=== PATIENT | male | born 1980 | race Two or more races ===

== ENCOUNTER 2025-03-12 12:19 | Emergency (ER) | payer MEDICAID, SELFPAY ==
[2025-03-12 12:31] VITALS: BP 168/96; BP 169/100; PULSE 80; RESP 18; TEMP 36.6; O2SAT 97; BMI 31.3
--- NOTE | 2025-03-12 13:08 | XR_ITS ---
Examination: CT abdomen and pelvis without contrast. Coronal 3-D reconstructions. Sagittal 2-D reconstructions. Date and time of exam: March 12, 2025, 1321 hours INDICATIONS: Flank pain abdominal pain dysuria beginning 1 week ago CTDI: vol (mGy): 8.39 DLP: (mGycm): 501 Technique: Axial images of the abdomen have been obtained, 3 mm slice thickness Intravenous contrast material has not been administered. Low dose protocols were performed. One or more of the following dose reduction techniques were used; automated exposure control, adjustment of the mA and/or KV according to patient size, use of iterative reconstruction technique. Findings: Fatty infiltration throughout the liver no focal liver or splenic lesions Contracted gallbladder No pancreatic or adrenal mass 6 mm right renal calculus, no hydronephrosis or ureteral calculi Aorta normal size Normal appendix No bladder mass or bladder calculi, mild thickening urinary bladder wall No prostatomegaly Ununited epiphysis L4 IMPRESSION: 8 mm nonobstructing right renal calculus, no hydronephrosis or ureteral calculi Normal appendix Cystitis
--- NOTE | 2025-03-12 13:08 | PD.EDRME ---
Rapid Medical Screening Exam RME Arrival date/time: 03/12/25 12:19 44-year-old male presents to the emergency department today complaint of abdominal pain, flank pain, dysuria Chief Complaint: General Adult/Misc Complain Time Seen by Provider: 03/12/25 15:42 Vital signs: Vital Signs Temperature 97.9 F 03/12/25 12:31 Pulse Rate 80 03/12/25 12:31 Respiratory Rate 18 03/12/25 12:31 Blood Pressure 169/100 H 03/12/25 12:31 Pulse Oximetry (%) 97 03/12/25 12:31 Oxygen Delivery Method Room Air 03/12/25 12:31
[2025-03-12 13:17] LABS: Collection Type, Urine Clean Catch; Squamous Epithelial Cell,Urine 0 /hpf (0-5); WBC,Urine 0 /hpf (0-5)
[2025-03-12 13:31] LABS: Amorphous Crystals,Urine Present (Absent); Bacteria,Urine 1+; Bilirubin,Urine Negative (Negative); Blood,Urine Negative (Negative); Clarity,Urine Hazy (Clear/Hazy); Color,Urine Yellow (Lt Yel-Yel); Culture Indicated,Urine Yes; Glucose, Urine Negative (Negative); Ketones,Urine Negative (Negative); Leukocyte Esterase,Urine Negative (Negative); Nitrite,Urine Negative (Negative); PH,Urine 7.5 (5.0-7.0); Protein,Urine Negative (Neg - Trace); RBC,Urine 9 /hpf (0-3); Specific Gravity,Urine 1.017 (1.001-1.035); Urobilinogen,Urine 2.0 mg/dL (0.0-1.0)
[2025-03-12 13:56] LABS: Basophils # (Auto) 0.1 Thou/mm3 (0.0-0.2); Basophils % (Auto) 1 % (0-2.5); Eosinophils # (Auto) 0.3 Thou/mm3 (0.0-0.5); Eosinophils % (Auto) 3 % (0-10); Hematocrit 45.8 % (41.0-53.0); Hemoglobin 15.6 g/dL (13.5-16.0); Immature Granulocytes Auto 0.02 Thou/mm3 (0.00-0.00); Lymphocytes # (Auto) 1.7 Thou/mm3 (1.0-4.8); Lymphocytes % (Auto) 22 % (10-50); Mean Corpuscular HGB Conc 34.1 g/dl (31.0-37.0); Mean Corpuscular Hemoglobin 29.5 pg (25.0-35.0); Mean Corpuscular Volume 87 fL (80-100); Monocytes # (Auto) 0.9 Thou/mm3 (0.0-0.8); Monocytes % (Auto) 12 % (0-12); Neutrophils # (Auto) 4.6 Thou/mm3 (1.8-7.7); Neutrophils % (Auto) 61 % (37-80); Nucleated Red Blood Cell # 0.00 Thou/mm3 (0.00-0.00); Nucleated Red Blood Cell % 0 /100 WBC (0); Platelet Count 177 Thou/mm3 (140-440); RDW Standard Deviation 40.4 fL (35.1-43.9); Red Blood Count 5.28 Miln/mm3 (4.50-5.90); White Blood Count 7.6 Thou/mm3 (3.8-10.6)
[2025-03-12 14:15] LABS: Alanine Aminotransferase 290 U/L (10-49); Albumin, Serum 4.2 gm/dL (3.5-5.0); Albumin/Globulin Ratio 1.4 (1.2-2.2); Alkaline Phosphatase 107 U/L (46-116); Anion Gap 9 (7-16); Aspartate Amino Transferase 424 U/L (0-34); BUN/Creatinine Ratio 10 Ratio (12-20); Bilirubin,Total 1.0 mg/dL (0.3-1.2); Blood Urea Nitrogen 6 mg/dL (9-23); Calcium 9.2 mg/dL (8.3-10.6); Calcium (Corrected) 9.2 mg/dL (8.5-10.1); Carbon Dioxide 30.8 mMol/L (20.0-31.0); Chloride 101 mMol/L (98-107); Creatinine (Component) 0.6 mg/dL (0.6-1.3); Estimated Creatinine Clearance 143.4 mL/min (>60); Globulin 2.9 gm/dL (2.3-3.5); Glucose 103 mg/dL (74-106); Lipase 43 U/L (12-53); Osmolality,Calculated 278 (275-295); Potassium 3.9 mMol/L (3.4-5.1); Sodium 141 mMol/L (136-145); Total Protein 7.1 gm/dL (5.7-8.2); eGFR > 60 See Note
--- NOTE | 2025-03-12 16:11 | XR_ITS ---
EXAMINATION: Testicular sonography complete TECHNIQUE: Grayscale sonographic images testes, assessment arterial inflow venous outflow with Doppler spectral analysis color flow analysis Date and time: March 12, 2025, 1628 hours INDICATIONS: Bilateral testicular pain beginning 2 weeks ago FINDINGS: Right testis 3.6 cm epididymis 1.2 cm 3 mm right epididymal cyst. Arterial flow the testicle. No testicular mass. Mild hydrocele Left testis 3.9 cm epididymis 13 mm Arterial flow to the testicle. No testicular mass Mild hydrocele IMPRESSION: No testicular torsion or testicular mass Small benign right epididymal cyst
--- NOTE | 2025-03-12 16:13 | EDNOTE_ITS ---
ED General RME/HPI General Chief complaint: General Adult/Misc Complain Stated complaint: WANTS CHECK UP, PAINFUL URINATION Time Seen by Provider: 03/12/25 15:42 Arrival date/time: 03/12/25 12:19 RME / HPI RME / HPI narrative: 03/12/25 12:19 44-year-old male who does drink a few beers daily, heterosexual male who had unprotected sex 1 month ago with a random person, presents to the emergency department today complaint of R flank pain x 2 months, new onset scrotal burning and burning with urination x 1 day. Denies fever, N/V/D, CP, SOB. Related Data Previous Rx's ?Medication ?Instructions ?Recorded doxycycline monohydrate 100 mg 100 mg PO BID #14 caps 03/12/25 capsule Allergies Allergy/AdvReac Type Severity Reaction Status Date / Time No Known Allergies Allergy Verified 03/12/25 12:23 ED Exam Narrative Physical exam: Constitutional: Patient alert and oriented. Well appearing. No acute distress. Not toxic appearing. Head: Normocephalic, atraumatic. Eyes: Periorbital regions bilaterally normal to inspection. Conjunctiva clear bilaterally. Sclera anicteric bilaterally. Pupils equal, round, reactive to light bilaterally. Extraocular movements intact bilaterally. Mouth/Throat: Mucous membranes moist. No stridor or muffled voice. No trismus. Handling secretions without difficulty. Airway widely patent. Neck: Supple. Trachea midline. No JVD. No nuchal rigidity. Normal range of motion. Respiratory: Normal effort. No accessory muscle use or respiratory distress. Lungs clear to auscultation bilaterally without rhonchi, wheezes, or crackles. Cardiovascular: RRR. Normal S1/S2. No murmurs or rubs. Radial pulses intact bilaterally. Abdomen: Soft. Non-distended. Non-tender throughout. No pulsatile mass. No guarding or rebound. Negative Rangel?s sign. Negative McBurney?s point tenderness. Negative Rovsing?s. Back: No midline tenderness or step-offs. No CVA tenderness to palpation bilaterally. Positive right paralumbar tenderness to palpation. : Patient is uncircumcised. Positive urethral discharge. Mild tenderness to scrotum bilaterally. Normal testicular reflex bilaterally. No rash or edema to scrotum. Upper Extremities: No gross deformities. Lower Extremities: No gross deformities. No edema or calf tenderness. Neuro: Speech normal. No gross motor or sensory deficits to upper or lower extremities bilaterally. GCS 15. CN II?XII grossly intact. Skin: Warm, dry, normal color. Psych: Normal affect. Cooperative. Normal insight. RN Evangelista chaperoned with me during scrotal exam and he translated for me Course Quality Measures none Orders Category Date Time Status CT abdomen pelvis wo con Stat Exams 03/12/25 13:08 Completed US scrotum Stat Exams 03/12/25 16:11 Completed CBC Stat Lab 03/12/25 13:40 Completed Comprehensive Metabolic Panel Stat Lab 03/12/25 13:40 Completed Lipase Stat Lab 03/12/25 13:40 Completed UA, C/S IF [Urinalysis, C/S if Indicated] Stat Lab 03/12/25 13:10 Completed Urine Culture Stat Lab 03/12/25 13:10 Received Urine Culture Stat Lab 03/12/25 17:20 Ordered Doxycycline [Vibramycin] Med 03/12/25 16:34 Discontinued 100 mg PO X1 ONE Ketorolac Inj [Toradol Inj] Med 03/12/25 16:32 Discontinued 30 mg IM X1 ONE cefTRIAXone [Rocephin] 1,000 mg Med 03/12/25 16:12 Discontinued Lidocaine 1% 20 ml [Xylocaine 1% 20 ML] 2.1 ml IM X1 Vital Signs Vital signs: Vital Signs Temperature 97.9 F 03/12/25 12:31 Pulse Rate 80 03/12/25 12:31 Respiratory Rate 18 03/12/25 12:31 Blood Pressure 169/100 H 03/12/25 12:31 Pulse Oximetry (%) 97 03/12/25 12:31 Oxygen Delivery Method Room Air 03/12/25 12:31 Discharge Plan Plan Patient Disposition: HOME (Self Care) Patient condition on transfer: Stable Prescriptions/Referrals Prescriptions/Med Rec: New doxycycline monohydrate 100 mg capsule 100 mg PO BID Qty: 14 0RF Referrals: No Primary/Family,Physician [Primary Care Provider] - In 1 week Problem List Clinical Impression: Urethritis, Pain in scrotum, Transaminitis Patient/Caregiver Discharge Instructions Education Materials: The Impact of Alcoholism, ED Urethritis Infec Vs Inflam ..., ED Testicular Pain, Unclear Cause Additional Instructions: Follow up with your primary medical doctor within 24 hours. Return to the Emergency Room immediately for any new, worsening, continuing symptoms or any c oncerns at all. Return to the Emergency Room within 24 hours if you are unable to follow up with your primary medical doctor within 24 hours. Do not have sex until cleared by your doctor. Print Language: [place] Stand Alone Forms: [employer] Award Info., Patient Portal Info Letter PA/PAINTER TUMBLING BARREL Supervising Physician PA/PAINTER TUMBLING BARREL Supervising Physician: Dr. Pereira MDM Narrative [facility] hospital course (for use when minimal MDM required): MDM 44-year-old male presents to the ER complaining of right flank pain x 2 months with new onset burning with urination, scrotal pain today. Patient does drink a few beers daily, he did drink today. CBC unremarkable CMP notable for AST 424 and ALT 290 consistent with alcoholic hepatitis however alk phos, total bilirubin and lipase all within normal limits and doubt acute hepatobiliary obstruction, I advised patient necessity to stop drinking as well as follow-up with PMD for further evaluation of his transaminitis Urine is notable for 9 RBCs, amorphous crystals as well as bacteria in his urine however leuks are negative as well as nitrites, pending urine culture CT scan notable for 8mm nonobstructing renal calculus on the right as well as cystitis There is fatty infiltration of his liver on the CT scan as well with a contracted gallbladder, appendix is normal On exam concern for urethritis will treat patient empirically with ceftriaxone and doxycycline also advised patient to abstain from intercourse until test of cure Patient's flank pain may be multifactorial in nature cannot exclude musculoskeletal strain versus sprain along with a potentially recently passed stone Plan for pain management as needed, antibiotics as noted, remain with alcohol abstinence, STI education, ED dispo pending ED course including ultrasound however will likely DC to follow-up with PMD in 1 to 2 days with strict ER return precautions advised Imaging Imaging Interpretation(s): Further imaging including ultrasound notes bilateral mild hydroceles and a small right epididymal head cyst however no torsion or epididymitis Medication Administration(s) Medication Administration History Discontinued Medications Ceftriaxone Sodium 1,000 mg/ (Lidocaine HCl 2.1 ml) 0 mg IM X1 ONE Stop: 03/12/25 16:13 Last Admin: 03/12/25 17:15 Dose: 1,000 mg Documented By: EF Doxycycline Hyclate (Doxycycline 100 Mg Tablet) 100 mg PO X1 ONE Stop: 03/12/25 16:35 Last Admin: 03/12/25 17:15 Dose: 100 mg Documented By: EF Ketorolac Tromethamine (Ketorolac Inj 60 Mg/2 Ml Vial) 30 mg IM X1 ONE Stop: 03/12/25 16:33 Last Admin: 03/12/25 17:15 Dose: 30 mg Documented By: EF
[2025-03-12] MEDS: cefTRIAXone 1,000 MG, LIDOCAINE 1% 20 ML 2.1 ML IM (17:15)
[2025-03-12] MEDS: DOXYCYCLINE 100 MG TABLET PO (17:15)
[2025-03-12] MEDS: KETOROLAC INJ 60 MG/2 ML VIAL 30 MG IM (17:15)
[2025-03-12 17:58] VITALS: BP 145/96; PULSE 72; RESP 16; O2SAT 96
== END 2025-03-12 17:58 | disposition home or self-care (01) ==
PROVIDERS: Nurse Practitioner Primary Care; Emergency Provider Emergency Medicine
DX: R74.01 Elevation of levels of liver transaminase levels (principal); N50.82 Scrotal pain; N34.2 Other urethritis
CPT/HCPCS: 36415; 74176; 76870; 80053; 81001; 83690; 85025; 87086; 96372; 99283; J0696; J1885; J3490; A9270